=== PATIENT | female | born 1975 | race Two or more races ===

== ENCOUNTER 2024-07-31 07:54 | Emergency (ER) | payer OTHER, MEDICAID ==
[~2024-07-31] VITALS: Ht 149.9 cm; Wt 50.8 kg
[2024-07-31 08:20] VITALS: TEMP 98.3
[2024-07-31] MEDS: PROCHLORPERAZINE EDISYLATE 5 MG/ML 2ML VIAL IM ONE (10:29)
[2024-07-31 10:36] VITALS: BP 107/63; PULSE 69; RESP 20; O2SAT 99
[2024-07-31] MEDS: SODIUM CHLORIDE 0.9% 1,000 ML IV ONE (11:05)
--- NOTE | 2024-07-31 12:21 | ED.PDOC ---
HPI (NEURO) HPI Comments 49-year-old female complaining of migraine headache 6/10 pain. Intermittent nausea. Patient reports a history of migraines. She tried taking Imitrex with no help. Patient states she is also taking Suboxone which did give mild help her for the headache earlier today. The patient has made it worse. She does report some mild photophobia. Chief Complaint: Headache Time Seen by MD: 09:05 Reviewed Notes: Nurses Notes Information Source: Patient Mode of Arrival: Ambulatory Past Medical History PAST MEDICAL HISTORY: Denies Surgical History: Denies all surgeries TECHNICAL PLANNER History: No Pertinent TECHNICAL PLANNER History Constitutional: denies: chills, diaphoresis, fatigue, fever, malaise, sweats, weakness, others EENTM: denies: blurred vision, double vision, ear bleeding, ear discharge, ear drainage, ear pain, ear ringing, eye pain, eye redness, hearing loss, mouth pain, mouth swelling, nasal discharge, nose bleeding, nose congestion, nose pain, photophobia, tearing, throat pain, throat swelling, voice changes, others Respiratory: denies: cough, hemoptysis, orthopnea, SOB at rest, shortness of breath, SOB with excertion, stridor, wheezing, others Cardiovascular: denies: chest pain, dizzy spells, diaphoresis, Dyspnea on exertion, edema, irregular heart beat, left arm pain, lightheadedness, palpitations, PND, syncope, others Gastrointestinal: reports: nausea; denies: abdomen distended, abdominal pain, blood streaked bowels, constipated, diarrhea, dysphagia, difficulty swallowing, hematemesis, melena, poor appetite, poor fluid intake, rectal bleeding, rectal pain, vomiting, others Genitourinary: denies: abnormal vagina bleeding, burning, dyspareunia, dysuria, flank pain, frequency, hematuria, incontinence, pain, , vagina discharge, urgency, others Neurological: reports: headache; denies: dizziness, fainting, left sided numbness, left sided weakness, numbness, paresthesia, pre-existing deficit, right sided numbness, right sided weakness, seizure, speech problems, tingling, tremors, weakness, others Musculoskeletal: denies: back pain, gout, joint pain, joint swelling, muscle pain, muscle stiffness, neck pain, others Integumetry: denies: bruises, change in color, change in hair/nails, dryness, laceration, lesions, lumps, rash, wounds, others Physical Exam General Appearance: No Apparent Distress, Normal HEENT: Normal ENT Inspection, Pharynx Normal, TMs Normal Neck: Full Range of Motion, Non-Tender, Normal, Normal Inspection Respiratory: Chest Non-Tender, Lungs Clear, No Accessory Muscle Use, No Respiratory Distress, Normal Breath Sounds Cardiovascular: No Edema, No JVD, No Murmur, No Gallop, Normal Peripheral Pulses, Regular Rate/Rhythm Breast Exam: Deferred Gastrointestinal: No Organomegaly, Non Tender, No Pulsatile Mass, Normal Bowel Sounds, Soft Genitalia: Deferred Pelvic: Deferred Rectal: Deferred Extremities: No calf tenderness, Normal capillary refill, Normal inspection, Normal range of motion, Non-tender, No pedal edema Musculoskeletal : Apperance: Normal Neurologic: Alert, social sciences lecturer II-XII nml as Tested, No Motor Deficits, Normal Affect, Normal Mood, No Sensory Deficits Cerebellar Function: Normal Reflexes: Normal Skin: Dry, Normal Color, Warm Lymphatic: No Adenopathy Was a procedure done? Was a procedure done?: No Differential Diagnosis (SZ) Seizure: N/A Headache: Cluster, Migraine, Subdural Hemorrhage X-Ray, Labs, Meds, VS Vital Signs Date Time Temp Pulse Resp B/P (MAP) Pulse Ox O2 Delivery O2 Flow Rate FiO2 07/31/24 10:36 69 20 107/63 (78) 99 07/31/24 08:20 98.3 61 20 126/94 (105) 98 98.3 07/31/24 08:20 61 61 99 Room Air 07/31/24 08:09 98.0 62 18 146/86 (106) 98 Current Medications Medications (Trade) Dose Ordered Sig/Belinda Route Start Time Stop Time Status Last Admin Prochlorperazine Edisylate (Compazine Inj) 10 mg ONCE ONCE IM 07/31/24 10:00 07/31/24 10:01 DC 07/31/24 10:29 Sodium Chloride 1,000 ml @ 1,000 mls/hr Q1H ONCE IV 07/31/24 11:00 07/31/24 11:59 DC 07/31/24 11:05 X-Ray, Labs, Meds, VS Comment Imaging: X-rays and CT scans were reviewed and interpreted by this provider, imaging shows no fractures and no pathological disease. Pending radiology review. Laboratory: Labs reviewed and interpreted by this provider. No significant abnormalities noted. Patient has prior medical visits reviewed. Med reconciliation performed Vital signs reviewed Patient felt significant improvement after 1 L bolus. Time of 1ST Reevaluation: 12:23 Reevaluation 1ST: Improved Patient Education/Counseling: Diagnosis, Treatment, Need For Follow Up (Patient advised to follow-up in the emergency room in the next 24 to 48 hours if symptoms do not improve. Advised follow-up with PCP in the next 3 to 5 days. Patient verbalized understanding. ) Family Education/Counseling: Diagnosis Departure 1 Departure Time of Disposition: 12:21 Impression: Primary Impression: Migraine Qualified Codes: G43.101 - Migraine with aura, not intractable, with status migrainosus Disposition: 01 HOME / SELF CARE / HOMELESS Condition: Fair Additional Instructions: Discharge Note: Continue on your medications. Drink plenty of fluids. Follow up with your primary Dr. If your condition becomes worse call and follow up with your primary Dr. for instructions or return to the ER if needed. Thank you for visiting [facility]. Discharged With: Self Critical Care Note Critical Care Time?: No Stability Stability form required: No Heart Score Heart Score: Heart Score Response (Comments) Value History N/A 0 EKG N/A 0 Age N/A 0 Risk Factors N/A 0 Troponin N/A 0 Total 0 FRANCIS MCGARRY Jul 31, 2024 12:21
== END 2024-07-31 12:23 | disposition home or self-care (01) ==
LOC: ER 07:54
DX: G43.101 Migraine with aura, not intractable, with status migrainosus (principal)
CPT/HCPCS: 96360; 96372; 99283; J0780; J7030

== ENCOUNTER → 2024-11-19 | Outpatient (CLI) | payer MEDICAID ==
[2024-11-19 08:25] LABS: Urine Bacteria None Seen /hpf (None Seen)
[2024-11-19 08:31] LABS: Hematocrit 40.8 % (36.0-46.0); Hemoglobin 14.1 g/dL (12.2-16.2); Mean Corpuscular Hemoglobin 31.6 pg (28.0-32.0); Mean Corpuscular Hgb Conc. 34.6 g/dL (32.0-36.0); Mean Corpuscular Volume 91.3 fL (80.0-100.0); Platelet Count (auto) 333 10^3/uL (140-450); Red Blood Cells 4.47 10^6/uL (4.0-5.20); Red Cell Distribution Width 13.4 % (11.8-14.3)
[2024-11-19 08:35] LABS: Basophils % (manual) 0 (0.0-2.0); Blast Cells 0; Metamyelocytes % 0; Myelocytes % 0; Promyelocytes % 0; Reactive Lymphocytes 0
[2024-11-19 08:36] LABS: Urine Blood Negative /uL (Negative); Urine Budding Yeast OCCASIONAL /hpf (None Seen); Urine Clarity Clear (Clear); Urine Color Light-Yellow (Yellow); Urine Protein, UAD Negative (Negative); Urine Specific Gravity 1.018 (1.001-1.035); Urine Squamous Epithelial Cell FEW /hpf (<5); Urine Urobilinogen Normal (Negative); Urine WBC 2 /HPF (0-5); Urine pH 7.5 (5.0-9.0)
[2024-11-19 08:50] LABS: Band Neutrophils % (manual) 1; Eosinophils % (manual) 9 (0-7); Lymphocytes % (manual) 49 (10.0-50.0); Monocytes % (manual) 5 (0-12); Platelet Estimate Adequate
[2024-11-19 08:52] LABS: Alanine Aminotransferase 15 U/L (7-40); Albumin 4.7 g/dL (3.2-4.8); Alkaline Phosphatase 62 U/L (46-116); Aspartate Aminotransferase 19 U/L (13-40); BUN/Creatinine Ratio 14.1 (10.0-20.0); Blood Urea Nitrogen 10 mg/dL (9-23); Calcium 9.9 mg/dL (8.7-10.4); Carbon Dioxide 29 mmol/L (20-31); Glucose 94 mg/dL (74-106); Potassium 4.5 mmol/L (3.5-5.1); Sodium 138 mmol/L (136-145); Total Protein 7.1 g/dL (5.7-8.2); Triglycerides 71 mg/dL (< 150)
[2024-11-19 08:53] LABS: Bilirubin, Total 0.6 mg/dL (0.2-1.0)
[2024-11-19 09:08] LABS: Cholesterol 213 mg/dL (< 200); HDL Cholesterol 77 mg/dL (40-59); LDL Cholesterol 121 mg/dL (< 100)
[2024-11-19 09:15] LABS: Anion Gap 3 (5-15); Chloride 106 mmol/L (98-107)
[2024-11-19 09:22] LABS: Lipase 29 U/L (12-53)
== END | disposition home or self-care (01) ==
LOC: LAB 08:13
PROVIDERS: ATTEND Family Medicine
DX: E11.9 Type 2 diabetes mellitus without complications (principal); E78.5 Hyperlipidemia, unspecified; E55.9 Vitamin D deficiency, unspecified; K86.0 Alcohol-induced chronic pancreatitis; R03.0 Elevated blood-pressure reading, without diagnosis of hypertension
CPT/HCPCS: 36415; 80053; 80061; 81001; 82306; 83036; 83690; 84443; 85007; 85027

== ENCOUNTER → 2025-01-01 | Outpatient (CLI) | payer MEDICAID | END | disposition home or self-care (01) | LOC: LAB 11:25 | PROVIDERS: ATTEND Student in an Organized Health Care Education/Training Program | DX: Z12.11 Encounter for screening for malignant neoplasm of colon (principal) | CPT/HCPCS: 82274 ==

== ENCOUNTER 2025-04-09 06:30 | Outpatient (CLI) | payer MEDICAID ==
[2025-04-09 07:22] LABS: Urine Protein, UAD Negative (Negative)
[2025-04-09 07:38] LABS: Alanine Aminotransferase 18 U/L (7-40); Alkaline Phosphatase 60 U/L (46-116); Anion Gap 6 (5-15); BUN/Creatinine Ratio 16.7 (10.0-20.0); Blood Urea Nitrogen 12 mg/dL (9-23); Calcium 9.6 mg/dL (8.7-10.4); Carbon Dioxide 29 mmol/L (20-31); Chloride 104 mmol/L (98-107); Glucose 85 mg/dL (74-106); Potassium 4.5 mmol/L (3.5-5.1); Sodium 139 mmol/L (136-145); Total Protein 7.2 g/dL (5.7-8.2); Triglycerides 83 mg/dL (< 150)
[2025-04-09 07:39] LABS: Bilirubin, Total 0.3 mg/dL (0.2-1.0)
[2025-04-09 07:40] LABS: Follicle Stimulating Hormone 72.55 IU/L (SEE BELOW)
[2025-04-09 07:44] LABS: Albumin 4.9 g/dL (3.2-4.8); Cholesterol 239 mg/dL (< 200); HDL Cholesterol 89 mg/dL (40-59)
[2025-04-09 09:00] LABS: Thyroid Stimulating Hormone 0.64 uIU/mL (0.55-4.78)
[2025-04-09 11:53] LABS: Microalb/Creat Ratio, Urine < 3
== END 2025-04-09 17:00 | disposition home or self-care (01) ==
LOC: LAB 06:30
PROVIDERS: ATTEND Student in an Organized Health Care Education/Training Program
DX: E11.42 Type 2 diabetes mellitus with diabetic polyneuropathy (principal); K70.30 Alcoholic cirrhosis of liver without ascites; M54.12 Radiculopathy, cervical region; F31.9 Bipolar disorder, unspecified
CPT/HCPCS: 36415; 80053; 80061; 81001; 82043; 82570; 82670; 82785; 83001; 83002; 83036; 83615; 84100; 84443; 86003